=== PATIENT | male | born 1960 | race Caucasian/White ===

== ENCOUNTER 2020-12-05 17:19 | Emergency (ER) | payer OTHER ==
[~2020-12-05] VITALS: Ht 167.6 cm; Wt 81.8 kg
[2020-12-05] MEDS ORDERED: LISI10TA22 PO (17:28)
[2020-12-05] MEDS ORDERED: ALLO10TA PO (17:28)
[2020-12-05 18:31] LABS: MEAN CORPUSCULAR HEMOGLOBIN 31.5 pg (27.0-33.0); MEAN CORPUSCULAR HGB CONC 32.6 g/dl (32.0-36.5); MEAN CORPUSCULAR VOLUME 96.6 fl (80.0-96.0); PLATELET COUNT, AUTOMATED 240 10^3/uL (150-450); RED BLOOD COUNT 4.76 10^6/uL (4.30-6.10)
[2020-12-05 18:54] LABS: AMPHETAMINES LEVEL URINE NEGATIVE (NEGATIVE); BARBITURATES URINE NEGATIVE (NEGATIVE); BENZODIAZEPINES URINE NEGATIVE (NEGATIVE); CANNABINOIDS URINE NEGATIVE (NEGATIVE); COCAINE METABOLITE URINE NEGATIVE (NEGATIVE); METHADONE URINE NEGATIVE (NEGATIVE); OPIATES URINE NEGATIVE (NEGATIVE); PHENCYCLIDINE URINE NEGATIVE (NEGATIVE)
[2020-12-05 19:17] LABS: ACETAMINOPHEN LEVEL < 2.0 UG/ML (10.0-30.0); ALT/SGPT 68 U/L (12-78); BILIRUBIN,DIRECT < 0.1 MG/DL (0.0-0.2); BILIRUBIN,TOTAL 0.2 MG/DL (0.2-1.0); BLOOD UREA NITROGEN 13 MG/DL (7-18); CALCIUM LEVEL 9.1 MG/DL (8.5-10.1); CARBON DIOXIDE LEVEL 27 MEQ/L (21-32); CHLORIDE LEVEL 107 MEQ/L (98-107); CREATININE FOR GFR 0.91 MG/DL (0.70-1.30); ETHYL ALCOHOL (ETHANOL) 0.328 % (0.000-0.010); GLOMERULAR FILTRATION RATE > 60.0 (>56); GLUCOSE, FASTING 101 MG/DL (70-100); POTASSIUM SERUM 4.7 MEQ/L (3.5-5.1); SALICYLATE LEVEL < 1.7 MG/DL (5.0-30.0); SODIUM LEVEL 141 MEQ/L (136-145)
[2020-12-06] MEDS ORDERED: LISI40TA4 PO (06:13)
[2020-12-06] MEDS ORDERED: AMLO1TAB25 PO (06:13)
[2020-12-06] MEDS ORDERED: IBUP80TA PO (06:13)
[2020-12-06] MEDS ORDERED: HOME MED LIST COMPLETE! XX SCH (06:15)
[2020-12-06 09:00] VITALS: BP 192/91
--- NOTE | 2020-12-06 16:07 | MHIPNPDOC ---
[facility] Progress Note Progress Note DATE OF SERVICE: 12/06/20 Patient presented by DARREN, does not need alternation at this time. Patient reports that he wanted argument with his and some angry statements in the context of drinking 1/5 of vodka bottle. Said expletives and that has been a vaguely harm himself or her. No recent inpatient admission, suicide attempts. Collateral obtained a PSA says he is okay to return home and that he just gets angry when drunk. Per PSA patient is calm, euthymic since sobering up. No recent physical abuse at home. Denies weapons or guns at home. Made PSA aware and needs to have a safe act completed, safety plan in place and appointment within 5 days mental health outpatient. DC states the weekend will call her arrange tomorrow to establish appointment. Patient refusing voluntary admission at this time, despite being offered. Vital Signs Vital Signs Date Time Temp Pulse Resp B/P (MAP) Pulse Ox O2 Delivery O2 Flow Rate FiO2 12/06/20 14:34 97.9 87 16 174/93 (120) 99 Room Air Laboratory Data 24H Labs Laboratory Tests 2 12/05/20 17:47: Nucleated Red Blood Cells % (auto) 0.0, Anion Gap 7L, Glomerular Filtration Rate > 60.0, Calcium Level 9.1, Total Bilirubin 0.2, Direct Bilirubin < 0.1, Asparta te Amino Transf (AST/SGOT) 42H, Alanine Aminotransferase (ALT/SGPT) 68, Alkaline Phosphatase 95, Total Protein 8.0, Albumin 4.0, Albumin/Globulin Ratio 1.0, Thyroid Stimulating Hormone (TSH) 3.160, Salicylates Level < 1.7L, Urine Opiates Screen NEGATIVE, Urine Methadone Screen NEGATIVE, Acetaminophen Level < 2.0L, Urine Barbiturates Screen NEGATIVE, Urine Phencyclidine Screen NEGATIVE, Urine Amphetamines Screen NEGATIVE, Urine Benzodiazepines Screen NEGATIVE, Urine Cocaine Metabolite Screen NEGATIVE, Urine Cannabinoids Screen NEGATIVE, Ethyl Alcohol Level 0.328H CBC/BMP Laboratory Tests 12/05/20 17:47 Current Medications Current Medications Medications (Trade) Dose Ordered Sig/Ivet Route PRN Reason Start Time Stop Time Status Last Admin Dose Admin Amlodipine Besylate (Norvasc) 10 mg DAILY PO 12/06/20 09:00 12/06/20 09:00 Home Med (Home Med List Complete!) ASDIRECTED XX 12/06/20 06:15 12/06/20 06:22 DC Lisinopril (Prinivil) 40 mg QHS PO 12/06/20 21:00 Allergies Coded Allergies: No Known Allergies (Unverified , 12/05/20) MANOJ DESAI MD Dec 06, 2020 16:07
[2020-12-06 16:51] VITALS: BP 168/78
[2020-12-06] MEDS ORDERED: lisinopriL 40 MG TAB PO SCH (21:00)
== END 2020-12-06 16:59 | disposition home or self-care (01) ==
LOC: M ED 17:19
DX: F10.120 Alcohol abuse with intoxication, uncomplicated (principal); F43.21 Adjustment disorder with depressed mood; I10 Essential (primary) hypertension

== ENCOUNTER 2021-02-23 01:34 | Emergency (ER) | payer OTHER ==
[~2021-02-23] VITALS: Ht 167.6 cm; Wt 81.8 kg
[~2021-02-23 01:34] MED LIST: ALLO10TA PO; AMLO1TAB25 PO; IBUP80TA PO; LISI10TA22 PO; LISI40TA4 PO
--- OUTSIDE RECORDS SUMMARY | 2021-02-23 01:41 | CCD ---
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 Supporting Document(s) SARS [facility] This lab was ordered by [facility] and reported by [employer]. ID Date Data Source [id number] 01/22/2020 12:00:00 AM EST [facility] Name Value Range Interpretation Code Description Data Ginette rce(s) Supporting Document(s) SARS [facility] This lab was ordered by [facility] and reported by [employer]. ID Date Data Source [id number] 01/16/2020 12:00:00 AM EDT [facility] Name Value Range Interpretation Code Description Data Ginette rce(s) Supporting Document(s) SARS [facility] This lab was ordered by [facility] and reported by [employer]. ID Date Data Source [id number] 01/11/2020 12:00:00 AM EDT [facility] Name Value Range Interpretation Code Description Data Ginette rce(s) Supporting Document(s) SARS [facility] This lab was ordered by [facility] and reported by [employer]. ID Date Data Source [id number] 01/03/2020 12:00:00 AM EDT [facility] Name Value Range Interpretation Code Description Data Ginette rce(s) Supporting Document(s) SARS [facility] This lab was ordered by [facility] and reported by [employer]. Procedure Social History No Information Vital Signs ID Date Data Source UNK Name Value Range Interpretation Code Description Data Source(s) Systolic blood pressure 140 mm[Hg] 140 mm[Hg] [facility] ([facility]) Diastolic blood pressure 80 mm[Hg] 80 mm[Hg] [place] ([facility]) Heart rate 77 /min 77 /min [place] ([facility]) Respiratory rate 18 /min 18 /min [place] ([facility]) Body temperature 95.4 [degF] 95.4 [degF] [facility] ([facility]) Body height 63.5 [in_i] 63.5 [in_i] [place] ([facility]) Body weight 183 [lb_av] 183 [lb_av] [place] ([facility]) Body mass index (BMI) [Ratio] 31.9 kg/m2 31.9 k g/m2 [place] ([facility]) Body surface area Derived from formula 1.87 m2 1.87 m2 [place] ([facility]) Oxygen saturation in Arterial blood by Pulse oximetry 97 % 97 % [place] ([facility]) Inhaled oxygen flow rate 0 L/min 0 L/min [place] ([facility]) Inhaled oxygen concentration 21 % 21 % [place] [facility]) Systolic blood pressure 154 mm[Hg] 154 mm[Hg] [facility] ([facility]) Diastolic blood pressure 98 mm[Hg] 98 mm[Hg] [place] ([facility]) Heart rate 76 /min 76 /min [place] ([facility]) Respiratory rate 20 /min 20 /min [place] [facility]) Body temperature 99.2 [degF] 99.2 [degF] [facility] ([facility]) Body height 63.5 [in_i] 63.5 [in_i] [place] ([facility]) Body weight 184 [lb_av] 184 [lb_av] [place] ([facility]) Body mass index (BMI) [Ratio] 32.1 kg/m2 32.1 k g/m2 [place] ([facility]) Body surface area Derived from formula 1.88 m2 1.88 m2 [place] ([facility]) Oxygen saturation in Arterial blood by Pulse oximetry 99 % 99 % [place] ([facility]) Systolic blood pressure 150 mm[Hg] 150 mm[Hg] [facility] ([facility]) Diastolic blood pressure 70 mm[Hg] 70 mm[Hg] [place] ([facility]) Heart rate 90 /min 90 /min [place] ([facility]) Respiratory rate 20 /min 20 /min [place] ([facility]) Body temperature 97 [degF] 97 [degF] [place] [facility]) Body height 63.5 [in_i] 63.5 [in_i] [place] ([facility]) Body weight 188 [lb_av] 188 [lb_av] [place] ([facility]) Body mass index (BMI) [Ratio] 32.8 kg/m2 32.8 k g/m2 [place] ([facility]) Body surface area Derived from formula 1.89 m2 1.89 m2 [place] ([facility]) Oxygen saturation in Arterial blood by Pulse oximetry 96 % 96 % [place] ([facility]) Inhaled oxygen flow rate 0 L/min 0 L/min [place] ([facility]) Inhaled oxygen concentration 21 % 21 % [place] ([facility]) Systolic blood pressure 162 mm[Hg] 162 mm[Hg] [facility] ([facility]) Diastolic blood pressure 94 mm[Hg] 94 mm[Hg] [place] ([facility]) Heart rate 90 /min 90 /min [place] ([facility]) Respiratory rate 18 /min 18 /min [place] ([facility]) Body temperature 97.4 [degF] 97.4 [degF] [facility] ([facility]) Body height 63.5 [in_i] 63.5 [in_i] [place] ([facility]) Body weight 184 [lb_av] 184 [lb_av] [place] ([facility]) Body mass index (BMI) [Ratio] 32.1 kg/m2 32.1 k g/m2 [place] ([facility]) Body surface area Derived from formula 1.88 m2 1.88 m2 [place] ([facility]) Oxygen saturation in Arterial blood by Pulse oximetry 94 % 94 % [place] ([facility]) Inhaled oxygen flow rate 0 L/min 0 L/min [place] ([facility]) Inhaled oxygen concentration 21 % 21 % [place] ([facility]) Systolic blood pressure 160 mm[Hg] 160 mm[Hg] [facility] ([facility]) Diastolic blood pressure 108 mm[Hg] 108 mm[Hg] [place] ([facility]) Systolic blood pressure 170 mm[Hg] 170 mm[Hg] [facility] ([facility]) Diastolic blood pressure 90 mm[Hg] 90 mm[Hg] [place] ([facility]) Body surface area Derived from formula 1.83 m2 1.83 m2 [place] ([facility]) Oxygen saturation in Arterial blood by Pulse oximetry 95 % 95 % [place] ([facility]) Systolic blood pressure 170 mm[Hg] 170 mm[Hg] [facility] ([facility]) Diastolic blood pressure 100 mm[Hg] 100 mm[Hg] [place] ([facility]) Heart rate 76 /min 76 /min [place] ([facility]) Respiratory rate 20 /min 20 /min [place] ([facility]) Body temperature 97.8 [degF] 97.8 [degF] [facility] ([facility]) Body height 63.5 [in_i] 63.5 [in_i] [place] ([facility]) Body weight 173 [lb_av] 173 [lb_av] [place] ([facility]) Body mass index (BMI) [Ratio] 30.2 kg/m2 30.2 k g/m2 [place] ([facility]) Patient Treatment Plan of Care Planned Activity Planned Date Details Description Data Source (s) Ibuprofen 800 MG Oral Tablet 09/23/2020 12:00:00 AM EDT [place] ([facility]) Amlodipine 10 MG Oral Tablet 09/23/2020 12:00:00 AM EDT [place] ([facility]) Amlodipine 5 MG Oral Tablet 08/26/2020 12:00:00 AM EDT [place] ([facility]) Lisinopril 40 MG Oral Tablet 08/26/2020 12:00:00 AM EDT [place] ([facility]) Lisinopril 40 MG Oral Tablet 07/29/2020 12:00:00 AM EDT [place] ([facility]) Lisinopril 30 MG Oral Tablet 07/08/2020 12:00:00 AM EDT [place] ([facility]) Ibuprofen 800 MG Oral Tablet 06/22/2020 12:00:00 AM EDT [place] ([facility]) Lisinopril 10 MG Oral Tablet 06/22/2020 12:00:00 AM EDT [place] ([facility]) Lisinopril 10 MG Oral Tablet 06/22/2020 12:00:00 AM EDT [place] ([facility]) Ibuprofen 800 MG Oral Tablet 02/09/2020 12:00:00 AM [facility]) Ibuprofen 800 MG Oral Tablet 12/20/2019 12:00:00 AM EDT [place] ([facility])
[2021-02-23 03:00] LABS: RSV AMPLIFICATION NEGATIVE (NEGATIVE)
--- OUTSIDE RECORDS SUMMARY | 2021-02-23 08:45 | CCD ---
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 Name Role Phone Chava Clay MD Unavailable Unavailable Rigo, Mariae [place] NIB ASSEMBLER Unavailable Unavailable Rigo, Mariae Na NIB ASSEMBLER Unavailable Unavailable [place], Mariae [place] NIB ASSEMBLER Unavailable Unavailable Rigo, Mariae [place] NIB ASSEMBLER Unavailable Unavailable [place], Mariae [place] NIB ASSEMBLER Unavailable Unavailable [place], Mariae Na NIB ASSEMBLER Unavailable Unavailable Rigo, Mariae Na NIB ASSEMBLER Unavailable Unavailable Rigo, Mariae [place] NIB ASSEMBLER Unavailable Unavailable [place], Mariae [place] NIB ASSEMBLER Unavailable Unavailable [place], Mariae Na NIB ASSEMBLER Unavailable Unavailable Rigo, Mariae [place] NIB ASSEMBLER Unavailable Unavailable [place], Mariae [place] NIB ASSEMBLER Unavailable Unavailable [place], Mariae [place] NIB ASSEMBLER Unavailable Unavailable [place], Mariae [place] NIB ASSEMBLER Unavailable Unavailable Rigo, Mariae [place] NIB ASSEMBLER Unavailable Unavailable Rigo, Mariae [place] NIB ASSEMBLER Unavailable Unavailable [place], Mariae Na NIB ASSEMBLER Unavailable Unavailable Re-disclosure Warning The records that [...] is protected by Article 27-F of the [facility] Public Health law. If you continue you may have access to information: Regarding HIV / AIDS; Provided by facilities licensed or operated by the [facility] Office of Mental Health; or Provided by the [facility] Office for People With Developmental Disabilities. If such information is present, then the following [facility] mandated warning applies: This information has been [...] law may result in a fine or half-way sentence or both. A general authorization for the release of medical or other information is NOT sufficient authorization for further disc losure. Encounters Encounter Providers Location Date Indications Data Source(s ) Emergency Attender: Chava Clay MD 12/22/2020 07:55:00 PM EDT - 12/23/2020 05:52:00 AM EDT INTOXICATED-ARM LACERATION [facility] INTOXICATED-ARM LACERATION Patient discharged. <td ID="encounterTypeDescriptionID0">STA NDARD OV</td><td>Na Sorensen NP</td><td>[facility]</td><td>09/23/2020</td><td>8:21AM</td><td>9:00AM</td><td><content ID="encounterDiagnosisID0-0">Low Back Pain</content>, <content ID="encounterDiagnosisID0-1">Essential Hypertension Benign</content></td>Outpatient Attender: [facility] 09[facility] 08:21:00 AM EDT - 09/23/2020 09:00:00 AM ED T Essential Hypertension BenignLow Back Pain [place] ([facility]) Essential Hypertension Benign Low Back Pain Outpatient<td ID="encounterTypeDescripti onID1">STANDARD OV</td><td>Na Sorensen NP</td><td>[facility]</td><td>08/26/2020</td><td>9:34AM</td><td>9:53AM</td><td><content ID="encounterDiagnosisID1-0">Essential Hypertension Benign</content></td> Attender: Na Sorensen NP [facility], 08/26/2020 09:34:00 AM EDT - 08/26/2020 09:53:00 AM EDT Essential Hypertension BenignEssential Hypertension Benign [place] ([facility]) Essential Hypertension Benign Essential Hypertension Benign Outpatient<td ID="encounterTypeDescripti onID2">STANDARD OV</td><td>Na Sorensen NP</td><td>[facility]</td><td>07/29/2020</td><td>11:14AM</td><td>11:42AM</td><td><content ID="encounterDiagnosisID2-0">Essential Hypertension Benign</content></td> Attender: Na Sorensen NP [facility], 07/29/2020 11:14:00 AM EDT - 07/29/2020 11:42:00 AM EDT Essential Hypertension BenignEssential Hypertension BenignEssential Hypertension Benign [place] ([facility]) Essential Hypertension Benign Essential Hypertension Benign Essential Hypertension Benign Outpatient<td ID="encounterTypeDescripti onID3">STANDARD OV</td><td>Na Sorensen NP</td><td>[facility]</td><td>07/08/2020</td><td>8:32AM</td><td>9:33AM</td><td><content ID="encounterDiagnosisID3-0">Essential Hypertension Benign</content></td> Attender: Na Sorensen NP [facility], 07/08/2020 08:32:00 AM EDT - 07/08/2020 09:33:00 AM EDT Essential Hypertension BenignEssential Hypertension BenignEssential Hypertension BenignEssential Hypertension Benign [place] ([facility]) Essential Hypertension Benign Essential Hypertension Benign Essential Hypertension Benign Essential Hypertension Benign Outpatient<td ID="encounterTypeDescripti onID4">STANDARD OV</td><td>Na Sorensen NIB ASSEMBLER</td><td>[facility]</td><td>06/22/2020</td><td>7:55AM</td><td>8:42AM</td><td><content ID="encounterDiagnosisID4-0">Essential Hypertension Benign</content></td> Attender: Na Sorensen NP [facility], 06/22/2020 07:55:00 AM EDT - 06/22/2020 08:42:00 AM EDT Essential Hypertension BenignEssential Hypertension BenignEssential Hypertension BenignEssential Hypertension BenignEssential Hypertension BenignEssential Hypertension Benign [place] ([facility]) Essential Hypertension Benign Essential Hypertension Benign Essential Hypertension Benign Essential Hypertension Benign Essential Hypertension Benign Essential Hypertension Benign Immunizations Vaccine Date Status Description Data Source(s) COVID-19 VACC, MRNA(PFIZER)/PF 08/14/2020 12:00:00 AM EDT completed [facility] COVID-19 VACCINE Pfizer 08/14/2020 12:00:00 AM EDT completed [facility] Vaccine Series Complete: YESThis Data wa s Submitted to [facility] Via [facility]. COVID-19 VACCINE Pfizer 03/27/2020 12:00:00 AM EST completed [facility] Vaccine Series Complete: NOThis Data was Submitted to [facility] Via [facility]. Medications Medication Brand Name Start Date Product Form Dose Route Admi nistrative Instructions Pharmacy Instructions Status Indications Reaction Description Data Source(s) Amlodipine 10 MG Oral Tablet amLODIPine Besylate 10 MG Oral Tablet amLODIPine Besylate 10 MG Oral Tablet 09/23/2020 12:00:00 AM EDT active amlodipine 10 MG Oral Tablet [place] ([facility]) Ibuprofen 800 MG Oral Tablet Ibuprofen 800 MG Oral Tablet 07 /09/2020 12:00:00 AM EDT active ibuprofen 800 MG Oral Tablet [place] ([facility]) Lisinopril 40 MG Oral Tablet Lisinopril 40 MG Oral Tablet 12:00:00 AM EDT active lisinopril 40 MG Oral Tablet [place] ([facility]) Amlodipine 5 MG Oral Tablet amLODIPine Besylate 5 MG O ral Tablet amLODIPine Besylate 5 MG Oral Tablet 08/26/2020 12:00:00 AM EDT aborted amlodipine 5 MG Oral Tablet [place] ([facility]) Lisinopril 40 MG Oral Tablet Lisinopril 40 MG Oral Tablet 12:00:00 AM EDT aborted lisinopril 40 MG Oral Tablet [place] ([facility]) Lisinopril 30 MG Oral Tablet Lisinopril 30 MG Oral Tablet 12:00:00 AM EDT aborted lisinopril 30 MG Oral Tablet [place] ([facility]) Lisinopril 10 MG Oral Tablet Lisinopril 10 MG Oral Tablet 12:00:00 AM EDT aborted lisinopril 10 MG Oral Tablet [place] ([facility]) Lisinopril 10 MG Oral Tablet Lisinopril 10 MG Oral Tablet 12:00:00 AM EDT aborted lisinopril 10 MG Oral Tablet [place] ([facility]) Ibuprofen 800 MG Oral Tablet Ibuprofen 800 MG Oral Tablet 12:00:00 AM EDT aborted ibuprofen 800 MG Oral Tablet [place] ([facility]) Ibuprofen 800 MG Oral Tablet Ibuprofen 800 MG Oral Tablet 12:00:00 AM EST aborted ibuprofen 800 MG Oral Tablet [place] ([facility]) Ibuprofen 800 MG Oral Tablet Ibuprofen 800 MG Oral Tablet 12:00:00 AM EDT aborted ibuprofen 800 MG Oral Tablet [place] ([facility]) Insurance Providers Payer name Policy type / Coverage type Policy ID Covered alliance party ID Covered alliance party's relationship to bhakta Policy Bhakta Plan Information [facility] [id number] SP [id number] 200 [facility] [id number] [facility] Other 0 [id number] Self 0 [employer] [place] Other 0 [id number] Self 0 [place] [facility] [place] Other 0 [id number] Self 0 [employer] [facility] [place] Other 0 [id number] Self 0 [employer] [facility] [place] Other 0 [id number] Self 0 [employer] [facility] [place] Other 0 [id number] Self 0 [employer] [facility] [place] Other 0 [id number] Self 0 [facility] [place] [facility] [id number] 18 [id number] [facility] [place] Other 0 [id number] Self 0 [employer] [facility] [place] Other 0 [id number] Self 0 Problems, Conditions, and Diagnoses No Information Surgeries/Procedures Procedure Description Date Indications Data Source(s) ELECTROCARDIOGRAM, COMPLETE (EKG) ELECTROCARDIOGRAM, COMPLET E (EKG) 06/22/2020 12:00:00 AM EDT [place] ([facility]) ELECTROCARDIOGRAM, COMPLETE (EKG) ELECTROCARDIOGRAM, COMPLET E (EKG) 06/22/2020 12:00:00 AM EDT [place] ([facility]) Results ID Date Data Source [id number] 12/23/2020 01:54:00 AM EDT [facility] [address] [place] [address] [phone] NAME SEX PT STATUS ACCOUNT NUMBER DUGLAS CARPENTER [facility] [id number] ORDERING PHYSICIAN LOCATION MEDICAL RECORD NO. Chava Clay MD ER [id number] ATTENDING PHYSICIAN DATE OF DATE OF EXAM/TIME NA SORENSEN Amirah NIB ASSEMBLER 1960 12/22/202147 TYPE / EXAM CT Head [...] Trans Dt/Tm: Trans by: DT Prt Dt/Tm: 3362-2621: Total DLP = 2292.00 mGy-cm 9867-3659: Total Radiation Dose = 7.1052 mSv Lifetime Dose: 7.1052 mSv Name Value Range Interpretation Code Description Data Ginette rce(s) Supporting Document(s) ID Date Data Source [id number] 12/22/2020 10:05:00 PM EDT [facility] Name Value Range Interpretation Code Description Data Ginette rce(s) Supporting Document(s) Leukocytes [#/volume] in Blood by Automated count 5.9 10*3/uL 4.45-10 .71 N [facility] Erythrocytes [#/volume] in Blood by Automated count 4.20 10*6/uL 4.3-6.1 Below low normal [facility] Hemoglobin [Moles/volume] in Blood 13.5 g/dL 13-18 N [facility] Hematocrit [Volume Fraction] of Blood by Automated count 41.2 % 42-52 Below low normal [facility] Erythrocyte mean corpuscular volume [Ent itic volume] in Cord blood by Automated count 98 fL 80-96 Above high normal [facility] Erythrocyte mean corpuscular hemoglobin [Entitic mass] by Au tomated count 32 pg 27-31 Above high normal [facility] Erythrocyte mean corpuscular hemoglobin concentration [Mass/volume] in Cord blood 33 g/dL 33-37 N [facility] ital Erythrocyte distribution width [Entitic volume] by Automated count 13 % 11-15 [facility] Platelets [#/volume] in Blood by Automated count 199 10*3/uL 130-472 N [facility] Platelet mean volume [Entitic volume] in Blood 9.8 fL 9.1-13.1 N [facility] Neutrophils/100 leukocytes in Blood by Automated count 67.8 % 41- 77 N [facility] Neutrophils [#/volume] in Blood by Automated count 4.0 U 1.7-7.6 N [facility] Lymphocytes/100 leukocytes in Blood by Automated count 22.0 % 14- 46 N [facility] Lymphocytes [#/volume] in Blood by Automated count 1.3 U 0.6-4.6 N [facility] Monocytes/100 leukocytes in Blood by Automated count 7.4 % 4-12 N [facility] Monocytes [#/volume] in Blood by Automated count 0.4 U 0.2-1.2 N [facility] Eosinophils/100 leukocytes in Blood by Automated count 1.7 % 0-7 N [facility] Eosinophils [#/volume] in Blood by Automated count 0.1 U 0.0-0.5 N [facility] Basophils/100 leukocytes in Blood by Automated count 0.8 % 0.4-1 .3 N [facility] Basophils [#/volume] in Blood by Automated count 0.1 U 0.0-0.2 N [facility] NUCLEATED RED BLOOD CELL 0 % [facility] NUCLEATED RED BLOOD CELL# 0 U [facility] Immature granulocytes [Presence] in Blood by Automated count 0-2 N [facility] Immature granulocytes [#/volume] in Blood by Automated count 0.0 U 0-0.1 N [facility] Manual Differential panel - Blood NO [facility] ID Date Data Source [id number] 12/22/2020 10:30:00 PM EDT [facility] Name Value Range Interpretation Code Description Data Ginette rce(s) Supporting Document(s) Urea nitrogen [Mass/volume] in Serum or Plasma 12 mg/dL 9-23 N [facility] Sodium [Moles/volume] in Serum or Plasma 146 mmol/L 132-146 N [facility] Potassium [Moles/volume] in Serum or Plasma 4.0 mmol/L 3.5-5.5 N [facility] Chloride [Moles/volume] in Serum or Plasma 112 mmol/L 99-109 Above high normal [facility] Carbon dioxide, total [Moles/volume] in Serum or Plasma 27 mmol/L 20 -31 N [facility] Anion gap in Serum or Plasma 11 mmol/L 8-16 N [facility] Glucose [Mass/volume] in Serum or Plasma 110 mg/dL 74-106 Above high normal [facility] Creatinine 0.8 mg/dL 0.5-1.1 N [facility] Glomerular filtration rate/1.73 sq M.pre dicted [Volume Rate/Area] in Serum or Plasma Greater Than 60 ABOVE 60 [facility] Alanine aminotransferase [Enzymatic acti vity/volume] in Serum or Plasma by With P-5'-P 46 U/L 10-49 N [facility] ital Aspartate aminotransferase [Enzymatic ac tivity/volume] in Serum or Plasma by With P-5'-P 29 U/L 0-33 N [facility] pital Alkaline phosphatase [Enzymatic activity/volume] in Serum or Plasma 88 U/L 45-129 N [facility] Calcium [Mass/volume] in Serum or Plasma 8.3 mg/dL 8.5-10.1 Below low normal [facility] Bilirubin.total [Mass/volume] in Serum or Plasma 0.2 mg/dL 0.3-1.2 Below low normal [facility] Albumin [Mass/volume] in Serum or Plasma by Bromocresol purple (BCP) dye binding method 3.5 g/dL 3.2-4.8 N [facility] ital Protein [Mass/volume] in Serum or Plasma 7.2 g/dL 5.7-8.2 [facility] ID Date Data Source [id number] 12/22/2020 10:30:00 PM T [facility] Name Value Range Interpretation Code Description Data Ginette rce(s) Supporting Document(s) Magnesium [Mass/volume] in Serum or Plasma 2.8 mg/dL 1.3-2.7 Above high normal [facility] ID Date Data Source [id number] 12/22/2020 10:30:00 PM EDT [facility] Name Value Range Interpretation Code Description Data Ginette rce(s) Supporting Document(s) Ethanol [Mass/volume] in Serum or Plasma 392 mg/dL Above high normal [facility] @Instrument will autodilute@review test & document. (F5 - H,I,D,E)50-79 mg/dL Mild Intoxication>80 mg/dL Intoxication>300 mg/dL Severe Impairment>400 mg/dL CriticalFor Medical Purposes Only ID Date Data Source [id number] 12/22/2020 09:54:00 PM EDT [facility] ED Physician Documentation NAME: DUGLAS CARPENTER : 1960 AGE: 60 MR#: [id number] SERVICE DATE: 12/22/[address]: Chava Clay [...] P atellar (L): 2+ Best Eye Response (Glo): (3) open to voice Best Motor Response (Glo): (6) obeys commands Best Verbal Response (Glo): [...] % (Auto) 67.8, Lymph % (Auto) 22.0, [place] % (Auto) 7.4, Eos % (Auto) 1.7, [...] Alcohol (ED) Follow Up Visit/Referrals: NA SORENSEN, NIB ASSEMBLER [Primary Care Provider] - (please follow up in 2 days) *Discharge Patient* Discharge Orders: Discharge Order (Routine); Ordered 12/23/20 Ordered By: Chava Clay Interventions Interventions: Alcohol Withdrawal Assessment L ast Done: 12/22/20 20:33 Report Signers: <Electronically signed by Chava Clay MD> Chava Clay MD 12/23/20 0451 Chava Clay MD SIGNATURE DA Report Cosigners: D: FRANCISCA 12/22/202153 T: FRANCISCA 12/22/202153 CC: NIB ASSEMBLER NA SORENSEN Name Value Range Interpretation Code Description Data Ginette rce(s) Supporting Document(s) ID Date Data Source [id number] 05/20/2020 12:00:00 AM EST [facility] Name Value Range Interpretation Code Description Data Ginette rce(s) Supporting Document(s) SARS Not Detected [facility] This lab was ordered by [facility]- Employee and reported by [facility]. ID Date Data Source [id number] 05/12/2020 12:00:00 AM EST [facility] Name Value Range Interpretation Code Description Data Ginette rce(s) Supporting Document(s) SARS coronavirus 2 pcr Negative [facility] This lab was ordered by [employer] and rep orted by [facility]. ID Date Data Source [id number] 05/08/2020 12:00:00 AM EST [facility] Name Value Range Interpretation Code Description Data Ginette rce(s) Supporting Document(s) SARS coronavirus 2 pcr Negative [facility] This lab was ordered by [employer] and rep orted by [facility]. ID Date Data Source [id number] 04/01/2020 12:00:00 AM EST [facility] Name Value Range Interpretation Code Description Data Ginette rce(s) Supporting Document(s) SARS coronavirus 2 (SARS-CoV-2) Positive [facility] This lab was ordered by [facility] and reported by [facility]. ID Date Data Source [id number] 03/23/2020 12:00:00 AM EST [facility] Name Value Range Interpretation Code Description Data Ginette rce(s) Supporting Document(s) SARS coronavirus 2 (SARS-CoV-2) Negative [facility] This lab was ordered by [facility] and reported by [facility]. ID Date Data Source [id number] 03/18/2020 03:00:00 PM EST [facility] Name Value Range Interpretation Code Description Data Ginette rce(s) Supporting Document(s) SARS-CoV-2 [facility] This lab was ordered by [facility] and reported by [employer]. ID Date Data Source [id number] 02/12/2020 02:00:00 PM EST [facility] Name Value Range Interpretation Code Description Data Ginette rce(s) Supporting Document(s) SARS-CoV-2 [facility] This lab was ordered by [facility] and reported by [facility]. ID Date Data Source [id number] 01/31/2020 12:00:00 AM EST [facility] Name Value Range Interpretation Code Description Data Ginette rce(s) Supporting Document(s) SARS [facility] This lab was ordered by [facility]- Employee and reported by [facility]. ID Date Data Source [id number] 01/22/2020 12:00:00 AM EST [facility] Name Value Range Interpretation Code Description Data Ginette rce(s) Supporting Document(s) SARS [facility] This lab was ordered by [facility] and reported by [facility]. ID Date Data Source [id number] 01/16/2020 12:00:00 AM EDT [facility] Name Value Range Interpretation Code Description Data Ginette rce(s) Supporting Document(s) SARS [facility] This lab was ordered by [facility]- [facility] and reported by [facility]. ID Date Data Source [id number] 01/11/2020 12:00:00 AM EDT [facility] Name Value Range Interpretation Code Description Data Ginette rce(s) Supporting Document(s) SARS [facility] This lab was ordered by [facility]- [facility] and reported by [facility]. ID Date Data Source [id number] 01/03/2020 12:00:00 AM EDT [facility] Name Value Range Interpretation Code Description Data Ginette rce(s) Supporting Document(s) SARS [facility] This lab was ordered by [facility] and reported by [facility]. Procedure Social History No Information Vital Signs ID Date Data Source UNK Name Value Range Interpretation Code Description Data Source(s) Systolic blood pressure 140 mm[Hg] 140 mm[Hg] [facility] ([facility]) Diastolic blood pressure 80 mm[Hg] 80 mm[Hg] [place] ([facility]) Heart rate 77 /min 77 /min [place] ([facility]) Respiratory rate 18 /min 18 /min [place] ([facility]) Body temperature 95.4 [degF] 95.4 [degF] [facility] ([facility]) Body height 63.5 [in_i] 63.5 [in_i] [place] ([facility]) Body weight 183 [lb_av] 183 [lb_av] [place] ([facility]) Body mass index (BMI) [Ratio] 31.9 kg/m2 31.9 k g/m2 [place] ([facility]) Body surface area Derived from formula 1.87 m2 1.87 m2 [place] ([facility]) Oxygen saturation in Arterial blood by Pulse oximetry 97 % 97 % [place] ([facility]) Inhaled oxygen flow rate 0 L/min 0 L/min [place] ([facility]) Inhaled oxygen concentration 21 % 21 % [place] ([facility]) Systolic blood pressure 154 mm[Hg] 154 mm[Hg] [facility] ([facility]) Diastolic blood pressure 98 mm[Hg] 98 mm[Hg] [place] ([facility]) Heart rate 76 /min 76 /min [place] ([facility]) Respiratory rate 20 /min 20 /min [place] ([facility]) Body temperature 99.2 [degF] 99.2 [degF] [place] [facility] ([facility]) Body height 63.5 [in_i] 63.5 [in_i] [place] ([facility]) Body weight 184 [lb_av] 184 [lb_av] [place] ([facility]) Body mass index (BMI) [Ratio] 32.1 kg/m2 32.1 k g/m2 [place] ([facility]) Body surface area Derived from formula 1.88 m2 1.88 m2 [place] ([facility]) Oxygen saturation in Arterial blood by Pulse oximetry 99 % 99 % [place] ([facility]) Systolic blood pressure 150 mm[Hg] 150 mm[Hg] [facility] ([facility]) Diastolic blood pressure 70 mm[Hg] 70 mm[Hg] [place] ([facility]) Heart rate 90 /min 90 /min [place] ([facility]) Respiratory rate 20 /min 20 /min [place] ([facility]) Body temperature 97 [degF] 97 [degF] [place] ([facility]) Body height 63.5 [in_i] 63.5 [in_i] [place] ([facility]) Body weight 188 [lb_av] 188 [lb_av] [place] ([facility]) Body mass index (BMI) [Ratio] 32.8 kg/m2 32.8 k g/m2 [place] ([facility]) Body surface area Derived from formula 1.89 m2 1.89 m2 [place] ([facility]) Oxygen saturation in Arterial blood by Pulse oximetry 96 % 96 % [place] ([facility]) Inhaled oxygen flow rate 0 L/min 0 L/min [place] ([facility]) Inhaled oxygen concentration 21 % 21 % [place] ([facility]) Systolic blood pressure 162 mm[Hg] 162 mm[Hg] [facility] ([facility]) Diastolic blood pressure 94 mm[Hg] 94 mm[Hg] [place] ([facility]) Heart rate 90 /min 90 /min [place] ([facility]) Respiratory rate 18 /min 18 /min [place] ([facility]) Body temperature 97.4 [degF] 97.4 [degF] [place] ([facility]) Body height 63.5 [in_i] 63.5 [in_i] [place] ([facility]) Body weight 184 [lb_av] 184 [lb_av] [place] ([facility]) Body mass index (BMI) [Ratio] 32.1 kg/m2 32.1 k g/m2 [place] ([facility]) Body surface area Derived from formula 1.88 m2 1.88 m2 [place] ([facility]) Oxygen saturation in Arterial blood by Pulse oximetry 94 % 94 % [place] ([facility]) Inhaled oxygen flow rate 0 L/min 0 L/min [place] ([facility]) Inhaled oxygen concentration 21 % 21 % [place] ([facility]) Systolic blood pressure 160 mm[Hg] 160 mm[Hg] [facility] ([facility]) Diastolic blood pressure 108 mm[Hg] 108 mm[Hg] [place] ([facility]) Systolic blood pressure 170 mm[Hg] 170 mm[Hg] [facility] ([facility]) Diastolic blood pressure 90 mm[Hg] 90 mm[Hg] [place] ([facility]) Body surface area Derived from formula 1.83 m2 1.83 m2 [place] ([facility]) Oxygen saturation in Arterial blood by Pulse oximetry 95 % 95 % [place] ([facility]) Systolic blood pressure 170 mm[Hg] 170 mm[Hg] [facility] ([facility]) Diastolic blood pressure 100 mm[Hg] 100 mm[Hg] [place] ([facility]) Heart rate 76 /min 76 /min [place] ([facility]) Respiratory rate 20 /min 20 /min [place] ([facility]) Body temperature 97.8 [degF] 97.8 [degF] [facility] ([facility]) Body height 63.5 [in_i] 63.5 [in_i] [place] ([facility]) Body weight 173 [lb_av] 173 [lb_av] [place] ([facility]) Body mass index (BMI) [Ratio] 30.2 kg/m2 30.2 k g/m2 [facility] ([facility]) Patient Treatment Plan of Care Planned Activity Planned Date Details Description Data Source (s) Ibuprofen 800 MG Oral Tablet 09/23/2020 12:00:00 AM EDT [facility] ([facility]) Amlodipine 10 MG Oral Tablet 09/23/2020 12:00:00 AM EDT [facility] ([facility]) Amlodipine 5 MG Oral Tablet 08/26/2020 12:00:00 AM EDT [facility] ([facility]) Lisinopril 40 MG Oral Tablet 08/26/2020 12:00:00 AM EDT [facility] ([facility]) Lisinopril 40 MG Oral Tablet 07/29/2020 12:00:00 AM EDT [facility] ([facility]) Lisinopril 30 MG Oral Tablet 07/08/2020 12:00:00 AM EDT [facility] ([facility]) Ibuprofen 800 MG Oral Tablet 06/22/2020 12:00:00 AM EDT [facility] ([facility]) Lisinopril 10 MG Oral Tablet 06/22/2020 12:00:00 AM EDT [facility] ([facility]) Lisinopril 10 MG Oral Tablet 06/22/2020 12:00:00 AM EDT [facility] ([facility]) Ibuprofen 800 MG Oral Tablet 02/09/2020 12:00:00 AM [facility]) Ibuprofen 800 MG Oral Tablet 12/20/2019 12:00:00 AM EDT [facility] ([facility])
[2021-02-23 08:58] LABS: BASO % 0.7 % (0.0-1.0); EOS # 0.1 10^3/uL (0.0-0.5); EOS % 0.9 % (0.0-3.0); HEMATOCRIT 42.5 % (42.0-52.0); LYMPH # 0.7 10^3/uL (1.5-5.0); LYMPH % 13.2 % (24.0-44.0); MEAN CORPUSCULAR HGB CONC 32.9 g/dl (32.0-36.5); MEAN CORPUSCULAR VOLUME 94.2 fl (80.0-96.0); MONO # 0.5 10^3/uL (0.0-0.8); MONO % 9.5 % (2.0-8.0); NEUTROPHILS % 75.3 % (36.0-66.0); PLATELET COUNT, AUTOMATED 206 10^3/uL (150-450); RED BLOOD COUNT 4.51 10^6/uL (4.30-6.10); WHITE BLOOD COUNT 5.4 10^3/uL (4.0-10.0)
--- NOTE | 2021-02-23 09:01 | REP ---
INDICATION: HTN COMPARISON: None. TECHNIQUE: PA/Lateral FINDINGS: There is blunting of the left costophrenic angle consistent with left pleural fluid or thickening. There is mild adjacent parenchymal opacity representing atelectasis/infiltrate versus scarring. The right lung is clear. The heart is normal in size. There is mild tortuosity of the thoracic aorta. The mediastinal silhouette is otherwise unremarkable. There are mild degenerative changes of the spine without compression deformity. IMPRESSION: Small amount of left pleural fluid or thickening. Mild adjacent atelectasis/infiltrate versus scarring. <Electronically signed by Gelacio Garcia > 02/23/21 [id number]
[2021-02-23] MEDS ORDERED: ISOVUE-370 76% 100ML VIAL As Ordered ONE (09:31)
--- NOTE | 2021-02-23 10:48 | REP ---
INDICATION: sob/cp/pleural thickening/pleural eff. COMPARISON: Radiographs today. TECHNIQUE: CT chest performed following the intravenous administration of 100 cc of Isovue 370. Sagittal and coronal reconstruction images are performed. FINDINGS: Lungs: Clear, no infiltrate or nodule. Mild scattered parenchymal scarring is noted bilaterally, more so in the left lower lobe. Mediastinum: No adenopathy. Terri: No adenopathy. Axilla: No adenopathy. Pleura: No effusion. There is pleural thickening inferiorly on the left. Heart: Not enlarged. Thoracic aorta: No aneurysm or dissection. Upper abdominal structures: There is diffuse fatty infiltration of the liver. Visualized osseous structures: Unremarkable. IMPRESSION: No acute infiltrate or pleural effusion. Chronic pleural and parenchymal scarring. <Electronically signed by Gelacio Garcia > 02/23/21 [id number]
[2021-02-23 11:18] VITALS: BP 161/87
--- NOTE | 2021-02-24 13:30 | ECGEPIP ---
[facility] - ED Test Date: 2021-02-23 Pat Name: DUGLAS CARPENTER Department: Room: - Gender: Male [employer]: ЕЛЕНА : 1960 Requested By: LAMAR Gordon PA-C Order Number: [id number] Reading MD: Paul Sarabia Measurements Intervals [place] Rate: 75 P: 38 [place]: 150 QRS: 11 QRSD: 84 T: 26 QT: 380 QTc: 424 Interpretive Statements Normal sinus rhythm Comparison tracing not on file Electronically Signed on 02-24-2021 13:29:43 EST by Paul Sarabia
== END 2021-02-23 11:36 | disposition home or self-care (01) ==
LOC: M ED 01:34
DX: J06.9 Acute upper respiratory infection, unspecified (principal); M94.0 Chondrocostal junction syndrome [Tietze]; I10 Essential (primary) hypertension; Z79.899 Other long term (current) drug therapy; F17.210 Nicotine dependence, cigarettes, uncomplicated
CPT/HCPCS: 36415; 71046; 71260; 80047; 85025; 87631; 93005; 99284; Q9967